=== PATIENT | male | born 1975 | race Caucasian/White ===

== ENCOUNTER 2021-12-05 09:05 | Outpatient (CLI) | payer OTHER, SELFPAY ==
[2021-12-05 09:22] VITALS: BP 180/99; PULSE 83; RESP 18; TEMP 36.7; O2SAT 98
[2021-12-05 09:30] VITALS: BP 151/88; PULSE 78; RESP 16; TEMP 36.7; O2SAT 97
[2021-12-05 09:36] VITALS: BMI 46.2
[2021-12-05 11:00] VITALS: BP 156/104; PULSE 73; RESP 16; TEMP 36.7; O2SAT 98
== END 2021-12-05 09:06 | disposition home or self-care (01) ==
PROVIDERS: PCP Nurse Practitioner Family; Visit Provider Nurse Practitioner Family
DX: U07.1 COVID-19 (principal)
CPT/HCPCS: 96365

== ENCOUNTER → 2022-07-11 07:59 | Outpatient (BNVA) | payer OTHER, SELFPAY | PROVIDERS: PCP Nurse Practitioner Family; Visit Provider Podiatrist Foot & Ankle Surgery | DX: M76.61 Achilles tendinitis, right leg (principal); M79.671 Pain in right foot | CPT/HCPCS: 73630 ==

== ENCOUNTER 2022-08-08 06:00 | Outpatient (CLI) | payer OTHER, SELFPAY | END 2022-08-08 23:00 | disposition home or self-care (01) | LOC: SPT 09-16 13:40 | PROVIDERS: PCP Nurse Practitioner Family; Visit Provider Podiatrist Foot & Ankle Surgery | DX: Z46.89 Encounter for fitting and adjustment of other specified devices (principal); M76.61 Achilles tendinitis, right leg; M79.671 Pain in right foot | CPT/HCPCS: L4397 ==